=== PATIENT | male | born 1955 | race African-American/Black ===

== ENCOUNTER 2016-03-29 23:11 | Emergency (ER) | payer BC ==
--- NOTE | 2016-03-30 01:56 | ED ---
Substance Abuse/Use - HPI Summary HPI Summary: Patient was downtown drinking to get drunk. Jose called EMS due to heavy public intoxication. Patient denies any focal complaints, trauma. NO allev factors. - History Of Current Complaint Chief Complaint: EDOverdose Stated Complaint: ETOH Time Seen by Provider: 03/29/16 23:22 Hx Obtained From: Patient, EMS Onset/Duration of Drug/ETOH Abuse: Hours Overdose Characteristics: Oral Timing Of Abuse: Intermittent Severity Initially: Moderate Severity Currently: Moderate Aggravating Factor(s): Nothing Alleviating Factor(s): Nothing - Allergies/Home Medications Allergies/Adverse Reactions: Allergies Allergy/AdvReac Type Severity Reaction Status Date / Time No Known Allergies Allergy Verified 05/20/15 14:11 PMH/Surg Hx/FS Hx/Imm Hx Endocrine/Hematology History: Reports: Hx Diabetes Denies: Hx Thyroid Disease Cardiovascular History: Reports: Hx Hypertension Respiratory History: Denies: Hx Asthma, Other Respiratory Problems/Disorders Musculoskeletal History: Denies: Hx Arthritis, Other Musculoskeletal History Sensory History: Denies: Hx Contacts or Glasses, Hx Eye Injury, Hx Glaucoma, Hx Hearing Problem Opthamlomology History: Denies: Hx Contacts or Glasses, Hx Eye Injury, Hx Glaucoma Neurological History: Denies: Other Neuro Impairments/Disorders Psychiatric History: Denies: Hx Anxiety, Hx Depression Infectious Disease History: No Infectious Disease History: Denies: Traveled Outside the [place] in Last 30 Days - Family History Known Family History: Positive: None - Social History Alcohol Use: Occasionally Hx Substance Use: No Substance Use Type: Reports: None Smoking Status (MU): Former Smoker Have You Smoked in the Last Year: No Review of Systems Negative: Fever, Chills Cardiovascular: Negative Negative: Chest Pain Respiratory: Negative Negative: Shortness Of Breath Gastrointestinal: Negative Negative: Abdominal Pain All Other Systems Reviewed And Are Negative: Yes Physical Exam Triage Information Reviewed: Yes Vital Signs On Initial Exam: Initial Vitals Temp Pulse Resp BP Pulse Ox 97.1 F 82 16 156/93 98 03/29/16 23:13 03/29/16 23:13 03/29/16 23:13 03/29/16 23:13 03/29/16 23:13 Vital Signs Reviewed: Yes Appearance: Positive: Well-Appearing, No Pain Distress, Well-Nourished Skin: Positive: Warm, Skin Color Reflects Adequate Perfusion, Dry Eyes: Positive: Normal, EOMI, JESSICA ENT: Positive: Normal ENT inspection, Hearing grossly normal Respiratory/Lung Sounds: Positive: Clear to Auscultation, Breath Sounds Present Cardiovascular: Positive: Normal, RRR, Pulses are Symmetrical in both Upper and Lower Extremities Abdomen Description: Positive: Nontender, No Organomegaly, Soft Musculoskeletal: Positive: Normal, Strength/ROM Intact Neurological: Positive: Normal, Sensory/Motor Intact, Alert, Oriented to Person Place, Time, CN Intact II-III, Reflexes Intact, Normal Gait. Negative: Cerebellar Dysfunction Diagnostics - Vital Signs Vital Signs Temp Pulse Resp BP Pulse Ox 03/29/16 23:13 97.1 F 82 16 156/93 98 - Laboratory Lab Statement: Any lab studies that have been ordered have been reviewed, and results considered in the medical decision making process. Course/Dx - Diagnoses Differential Diagnosis/HQI/PQRI: Positive: Alcohol Abuse, Other - Primary concern for acute alcohol intoxication. NO external signs of trauma. Will allow to metabolize and reassess need for medical evaluation. If improves and clinically krysta, then DC. He does not currently have a safe environment to discharge home right now and will be observed in the ED for his safety. Provider Diagnoses: Alcohol intoxication Discharge - Discharge Plan Condition: Improved Disposition: HOME Patient Education Materials: Alcohol Intoxication (ED) Referrals: Raad Hoyt MD [Primary Care Provider] -
[2016-03-30 05:42] VITALS: BP 154/76
== END 2016-03-30 05:41 | disposition home or self-care (01) ==
LOC: ED 23:11
DX: F10.129 Alcohol abuse with intoxication, unspecified (principal); Z87.891 Personal history of nicotine dependence
CPT/HCPCS: 99282

== ENCOUNTER 2016-04-15 11:26 | Emergency (ER) | payer BC ==
[2016-04-15 12:05] VITALS: BP 153/96
--- NOTE | 2016-04-15 12:28 | UC ---
Eye Complaint HPI - HPI Summary HPI Summary: 2-3 days ago pt developed bilat eye itching and redness with drainage. Tried using ketotifen drops last night, today redness and itching are much worse. - History of Current Complaint Chief Complaint: UCEye Stated Complaint: EYE ISSUE Time Seen by Provider: 04/15/16 12:10 Hx Obtained From: Patient Onset/Duration: Gradual Onset, Lasting Days Timing: Constant Severity Initially: Mild Severity Currently: Moderate Location of Injury: Conjunctiva Aggravating Factor(s): Eye Drops Alleviating Factor(s): Nothing Associated Signs And Symptoms: Positive: Drainage (Clear) - Allergies/Home Medications Allergies/Adverse Reactions: Allergies Allergy/AdvReac Type Severity Reaction Status Date / Time No Known Allergies Allergy Verified 05/20/15 14:11 Home Medications: Home Medications metFORMIN* [Glucophage*] 1,000 mg PO 0800,1700 04/15/16 [History Confirmed 04/15] PMH/Surg Hx/FS Hx/Imm Hx Endocrine History Of: Reports: Diabetes Denies: Thyroid Disease Cardiovascular History Of: Reports: Hypertension Respiratory History Of: Denies: Asthma Psychological History Of: Denies: Anxiety, Depression - Surgical History Surgical History: None - Family History Known Family History: Positive: Hypertension - Social History Occupation: Employed Full-time Lives: Alone Alcohol Use: Weekly Substance Use Type: None Smoking Status (MU): Former Smoker Have You Smoked in the Last Year: No Review of Systems Constitutional: Negative Skin: Negative Eyes: Drainage, Eye Redness ENT: Negative Respiratory: Negative Cardiovascular: Negative Gastrointestinal: Negative Genitourinary: Negative Motor: Negative Neurovascular: Negative Musculoskeletal: Negative Neurological: Negative Psychological: Negative All Other Systems Reviewed And Are Negative: Yes Physical Exam Triage Information Reviewed: Yes Appearance: Well-Appearing, No Pain Distress, Well-Nourished Vital Signs: Initial Vital Signs Temp 97.7 F 04/15/16 12:01 Pulse 78 04/15/16 12:01 Resp 18 04/15/16 12:01 BP 153/96 04/15/16 12:01 Pulse Ox 98 04/15/16 12:01 Vital Signs Reviewed: Yes Eye Exam: Other - copious clear and purulent drainage Eyes: Positive: Conjunctiva Inflamed ENT: Positive: Normal ENT inspection, Hearing grossly normal, Pharynx normal, Nasal drainage Dental Exam: Normal Neck exam: Normal Neck: Positive: Supple, Nontender, No Lymphadenopathy Respiratory Exam: Normal Respiratory: Positive: Chest non-tender, Lungs clear, Normal breath sounds, No respiratory distress, No accessory muscle use Cardiovascular Exam: Normal Cardiovascular: Positive: RRR, No Murmur Musculoskeletal Exam: Normal Neurological Exam: Normal Psychological Exam: Normal Skin Exam: Normal Eye Complaint Course/Dx - Differential Dx/Diagnosis Provider Diagnoses: bilat conjunctivitis, likely bacterial Discharge - Discharge Plan Condition: Stable Disposition: HOME Prescriptions: Ciprofloxacin 0.3% OPTH.DENIS* [Cipro 0.3% Opth*] 2 drop BOTH EYES QID #10 ml Patient Education Materials: Conjunctivitis (ED) Forms: *Work Release Referrals: Raad Hoyt MD [Primary Care Provider] - 3 Days Additional Instructions: As we discussed, I suspect that you have a bacterial infection. The over-the- counter drops you used may have caused an allergic reaction in your eyes, making them much more itchy and red than before. If your infection is caused by bacteria, the drops I prescribed should give you some improvement within a couple days. If you are not improving by , please see Dr. Hoyt. Viral conjunctivitis (which is common in adults and is very possible in your case) has no treatment but will typically resolve on its own in 1-2 weeks. Allergic conjunctivitis needs different treatment and can include pills, nasal sprays, and eye drops that all help block the body's allergic response.
== END 2016-04-15 12:56 | disposition home or self-care (01) ==
LOC: UCEAST 11:26
DX: H10.9 Unspecified conjunctivitis (principal); Z87.891 Personal history of nicotine dependence; E11.9 Type 2 diabetes mellitus without complications; I10 Essential (primary) hypertension
CPT/HCPCS: 99212; G0463

== ENCOUNTER 2016-07-20 12:55 | Emergency (ER) | payer BC ==
[2016-07-20] MEDS ORDERED: amLODIPine TAB* 5 MG PO ONE ×2 (15:04→17:46)
--- NOTE | 2016-07-20 15:25 | RAD ---
Indication: Hypertension, confusion. 2 views of the chest including dual energy PA views demonstrate no mediastinal shift. Heart is of normal size and configuration. Lung horne are clear. IMPRESSION: No active cardiopulmonary disease is noted.
[2016-07-20 16:10] LABS: Hematocrit 47 % (42-52); Hemoglobin 15.6 g/dl (14.0-18.0); Mean Corpuscular HGB Conc 33 g/dl (31-36); Mean Corpuscular Hemoglobin 29 pg (27-31); Mean Corpuscular Volume 87 fL (80-94); Mean Platelet Volume 9 um3 (7.4-10.4); Red Blood Count 5.45 10^6/ul (4.0-5.4); Red Cell Distribution Width 15 % (10.5-15); White Blood Count 8.3 10^3/ul (3.5-10.8)
[2016-07-20 16:24] LABS: Albumin 4.2 g/dL (3.2-5.2); BUN/Creatinine Ratio 9.8 (8-20); Calcium 9.8 mg/dL (8.6-10.3); EGFR African American 107.2 (>60); EGFR Non-African American 83.4 (>60); Globulin 3.4 g/dL (2-4); Total Bilirubin 0.6 mg/dL (0.2-1.0); Total Protein 7.6 g/dL (6.4-8.9)
[2016-07-20 16:30] LABS: Potassium 4.1 mmol/L (3.5-5.0)
[2016-07-20] MEDS ORDERED: NS 0.9% 1000 ML* 1,000 ML IV ONE (16:47)
[2016-07-20] MEDS ORDERED: hydrALAZINE IV* 20 MG/ML VIAL IV SLOW PU ONE (17:45)
--- NOTE | 2016-07-20 18:16 | RAD ---
Indication: Hypertensive headaches. CT of the brain was performed without IV contrast. Coronal and sagittal reconstructed images were obtained. Ventricular structures are midline. No midline shift is noted. The extra-axial spaces are unremarkable. There is no evidence of intracranial mass or hemorrhage. No other high or low density lesions are identified. Mastoid air cells and paranasal sinuses are unremarkable. IMPRESSION: There is no evidence of intracranial mass or hemorrhage noted.
[2016-07-20 18:22] LABS: Urine Bacteria Absent (Absent); Urine Bilirubin Negative (Negative); Urine Glucose Negative (Negative); Urine Nitrite Negative (Negative)
[2016-07-20] MEDS ORDERED: amLODIPine TAB* 5 MG ONE (18:26)
--- NOTE | 2016-07-20 20:02 | ED ---
Sari Romero Alok, scribed for Asia Pandey MD on 07/20/16 at 1441 . Hypertension - HPI Summary HPI Summary: 61M presents to the ED for HTN for the past 4 days. Pt has had HTN for years and takes Valsartan 320mg QD which has been effectively managing his BP up until 4 days ago. Pt states his BP has been consistently high throughout the day , running at 199/95. His baseline BP has been 131/-. Pt notes a mild WAL[place]. Pt denies CP or SOB. Pt drinks ETOH. - History of Current Complaint Chief Complaint: EDGeneral Stated Complaint: HIGH BP,DIZZY,HEAD ACHE Time Seen by Provider: 07/20/16 13:40 Hx Obtained From: Patient Onset/Duration: Started Days Ago, Atraumatic, Still Present Timing: Constant Reported Blood Pressure Prior To Arrival: 199/95 Aggravating Factor(s): Nothing Alleviating Factor(s): Nothing Associated Signs & Symptoms: Headaches - Allergies/Home Medications Allergies/Adverse Reactions: Allergies Allergy/AdvReac Type Severity Reaction Status Date / Time No Known Allergies Allergy Verified 05/20/15 14:11 PMH/Surg Hx/FS Hx/Imm Hx Endocrine/Hematology History: Reports: Hx Diabetes Denies: Hx Thyroid Disease Cardiovascular History: Reports: Hx Hypertension Respiratory History: Denies: Hx Asthma, Other Respiratory Problems/Disorders Musculoskeletal History: Denies: Hx Arthritis, Other Musculoskeletal History Sensory History: Denies: Hx Contacts or Glasses, Hx Eye Injury, Hx Glaucoma, Hx Hearing Problem Opthamlomology History: Denies: Hx Contacts or Glasses, Hx Eye Injury, Hx Glaucoma Neurological History: Denies: Other Neuro Impairments/Disorders Psychiatric History: Denies: Hx Anxiety, Hx Depression Infectious Disease History: No Infectious Disease History: Denies: Traveled Outside the [place] in Last 30 Days - Family History Known Family History: Positive: Hypertension - Social History Occupation: Employed Full-time Lives: Alone Alcohol Use: Weekly Hx Substance Use: No Substance Use Type: Reports: None Smoking Status (MU): Former Smoker Have You Smoked in the Last Year: No Review of Systems Negative: Fever Positive: Other - HTN. Negative: Chest Pain Negative: Shortness Of Breath Positive: Headache All Other Systems Reviewed And Are Negative: Yes Physical Exam Triage Information Reviewed: Yes Vital Signs On Initial Exam: Initial Vitals Temp Pulse Resp BP Pulse Ox 97.7 F 64 20 199/95 99 07/20/16 13:08 07/20/16 13:08 07/20/16 13:08 07/20/16 13:08 07/20/16 13:08 Vital Signs Reviewed: Yes Appearance: Positive: Well-Appearing, No Pain Distress Skin: Positive: Warm, Skin Color Reflects Adequate Perfusion, Dry Eyes: Positive: EOMI, JESSICA ENT: Positive: Pharynx normal, TMs normal Neck: Positive: Supple, Nontender Respiratory/Lung Sounds: Positive: Clear to Auscultation, Breath Sounds Present. Negative: Rales, Rhonchi, Wheezes Cardiovascular: Positive: RRR, Other - No gallop. Negative: Murmur, Rub Abdomen Description: Positive: Nontender, Soft, Other: - No rebound. Negative: Distended, Guarding Bowel Sounds: Positive: Present Musculoskeletal: Positive: Strength/ROM Intact. Negative: Edema Left, Edema Right Neurological: Positive: Sensory/Motor Intact, Alert, Oriented to Person Place, Time, CN Intact II-III Psychiatric: Positive: Affect/Mood Appropriate - [place] Coma Scale Coma Scale Total: 15 Diagnostics - Vital Signs Vital Signs Temp Pulse Resp BP Pulse Ox 07/20/16 13:11 98.1 F 77 20 199/95 98 07/20/16 13:08 97.7 F 64 20 199/95 99 - Laboratory Lab Results: Lab Results 07/20/16 07/20/16 07/20/16 Range/Units 16:00 16:00 16:00 WBC 8.3 (3.5-10.8) 10^3/ul RBC 5.45 H (4.0-5.4) 10^6/ul Hgb 15.6 (14.0-18.0) g/dl Hct 47 (42-52) % MCV 87 (80-94) fL MCH 29 (27-31) pg MCHC 33 (31-36) g/dl RDW 15 (10.5-15) % Plt Count 223 (150-450) 10^3/ul MPV 9 (7.4-10.4) um3 Neut % (Auto) 69.9 (38-83) % Lymph % (Auto) 18.1 L (25-47) % [place] % (Auto) 9.9 H (1-9) % Eos % (Auto) 1.6 (0-6) % Baso % (Auto) 0.5 (0-2) % Absolute Neuts (auto) 5.8 (1.5-7.7) 10^3/ul Absolute Lymphs (auto) 1.5 (1.0-4.8) 10^3/ul Absolute Monos (auto) 0.8 (0-0.8) 10^3/ul Absolute Eos (auto) 0.1 (0-0.6) 10^3/ul Absolute Basos (auto) 0 (0-0.2) 10^3/ul Absolute Nucleated RBC 0.01 10^3/ul Nucleated RBC % 0.2 Sodium 139 (133-145) mmol/L Potassium 4.1 (3.5-5.0) mmol/L Chloride 106 (101-111) mmol/L Carbon Dioxide 25 (22-32) mmol/L Anion Gap 8 (2-11) mmol/L BUN 9 (6-24) mg/dL Creatinine 0.92 (0.67-1.17) mg/dL Est GFR ( Amer) 107.2 (>60) Est GFR (Non-Af Amer) 83.4 (>60) BUN/Creatinine Ratio 9.8 (8-20) Glucose 97 (70-100) mg/dL Lactic Acid 2.3 H* (0.5-2.0) mmol/L Calcium 9.8 (8.6-10.3) mg/dL Total Bilirubin 0.60 (0.2-1.0) mg/dL AST 22 (13-39) U/L ALT 30 (7-52) U/L Alkaline Phosphatase 93 (34-104) U/L Total Protein 7.6 (6.4-8.9) g/dL Albumin 4.2 (3.2-5.2) g/dL Globulin 3.4 (2-4) g/dL Albumin/Globulin Ratio 1.2 (1-3) Urine Color Urine Appearance Urine pH (5-9) Ur Specific [place] (1.010-1.030) Urine Protein (Negative) Urine Ketones (Negative) Urine Blood (Negative) Urine Nitrate (Negative) Urine Bilirubin (Negative) Urine Urobilinogen (Negative) Ur Leukocyte Esterase (Negative) Urine WBC (Auto) (Absent) Urine RBC (Auto) (Absent) Ur Squamous Epith Cells (Absent) Urine Bacteria (Absent) Urine Glucose (Negative) 07/20/16 07/20/16 Range/Units 18:10 19:34 WBC (3.5-10.8) 10^3/ul RBC (4.0-5.4) 10^6/ul Hgb (14.0-18.0) g/dl Hct (42-52) % MCV (80-94) fL MCH (27-31) pg MCHC (31-36) g/dl RDW (10.5-15) % Plt Count (150-450) 10^3/ul MPV (7.4-10.4) um3 Neut % (Auto) (38-83) % Lymph % (Auto) (25-47) % [place] % (Auto) (1-9) % Eos % (Auto) (0-6) % Baso % (Auto) (0-2) % Absolute Neuts (auto) (1.5-7.7) 10^3/ul Absolute Lymphs (auto) (1.0-4.8) 10^3/ul Absolute Monos (auto) (0-0.8) 10^3/ul Absolute Eos (auto) (0-0.6) 10^3/ul Absolute Basos (auto) (0-0.2) 10^3/ul Absolute Nucleated RBC 10^3/ul Nucleated RBC % Sodium (133-145) mmol/L Potassium (3.5-5.0) mmol/L Chloride (101-111) mmol/L Carbon Dioxide (22-32) mmol/L Anion Gap (2-11) mmol/L BUN (6-24) mg/dL Creatinine (0.67-1.17) mg/dL Est GFR ( Amer) (>60) Est GFR (Non-Af Amer) (>60) BUN/Creatinine Ratio (8-20) Glucose (70-100) mg/dL Lactic Acid 1.9 (0.5-2.0) mmol/L Calcium (8.6-10.3) mg/dL Total Bilirubin (0.2-1.0) mg/dL AST (13-39) U/L ALT (7-52) U/L Alkaline Phosphatase (34-104) U/L Total Protein (6.4-8.9) g/dL Albumin (3.2-5.2) g/dL Globulin (2-4) g/dL Albumin/Globulin Ratio (1-3) Urine Color Yellow Urine Appearance Clear Urine pH 5.0 (5-9) Ur Specific [place] 1.018 (1.010-1.030) Urine Protein 1+(30 mg/dl) H (Negative) Urine Ketones Negative (Negative) Urine Blood Negative (Negative) Urine Nitrate Negative (Negative) Urine Bilirubin Negative (Negative) Urine Urobilinogen Negative (Negative) Ur Leukocyte Esterase Negative (Negative) Urine WBC (Auto) Trace(0-5/hpf) (Absent) Urine RBC (Auto) 1+(3-5/hpf) H (Absent) Ur Squamous Epith Cells Present H (Absent) Urine Bacteria Absent (Absent) Urine Glucose Negative (Negative) Result Diagrams: 07/20/16 16:00 07/20/16 16:00 Lab Statement: Any lab studies that have been ordered have been reviewed, and results considered in the medical decision making process. - Radiology CXR Xray Interpretation: Positive (See Comments) - IMPRESSION: NO ACTIVE CARDIOPULMONARY DISEASE IS NOTED. Radiology Interpretation Completed By: Radiologist - CT Brain CT CT Interpretation: Positive (See Comments) - IMPRESSION: There is no evidence of intracranial mass or hemorrhage noted. CT Interpretation Completed By: Radiologist - EKG 1319 Cardiac Rate: NL - 58 bpm EKG Rhythm: Sinus Rhythm Hypertension Course/Dx - Course Assessment/Plan: 61 yo male with htn with bp's at 190/100 since . Case was discussed with Dr. Jimenez and Dr. Hernández initially 5mg of amlodipine was added to his 320 mg of valsaartan without much change and second dose of 5mg and 10mg of hydralazine were given with spb of 180. Pt is essentially asymptomatic, did have a mild walden, ct neg, labs normal a little protein in urine. He did have an initial lactae that was 2.3 that was redrawn and was below 2. Pt understands it is going to take some time to get his pressures down and that if he has cp, sob, or worsened headache he needs to come back - Diagnoses Provider Diagnoses: Hypertensive urgency Discharge - Discharge Plan Condition: Stable Disposition: HOME Prescriptions: Amlodipine Besylate [Norvasc 5 mg tab] 5 mg PO DAILY #14 tab The documentation as recorded by the Sari prater Alok accurately reflects the service I personally performed and the decisions made by me, Asia Pandey MD.
[2016-07-20 20:41] VITALS: BP 186/89
== END 2016-07-20 20:43 | disposition home or self-care (01) ==
LOC: ED 12:55
DX: I16.0 Hypertensive urgency (principal); R51 Headache; Z87.891 Personal history of nicotine dependence
CPT/HCPCS: 36415; 70450; 71020; 80053; 81003; 81015; 83605; 85025; 93005; 99284; A9270-GY; J0360

== ENCOUNTER 2017-02-21 02:26 | Emergency (ER) | payer BC ==
[2017-02-21] MEDS ORDERED: Thiamine IV 100 MG, Folic Acid IV* 1 MG, Multiple Vitamin IV ADULT* 10 ML in NS 0.9% 10... IV ONE (02:47)
[2017-02-21 03:21] LABS: ABS Basophils 0 10^3/ul (0-0.2); ABS Eosinophils 0.1 10^3/ul (0-0.6); ABS Lymphocytes 2.2 10^3/ul (1.0-4.8); ABS Monocytes 0.6 10^3/ul (0-0.8); ABS Neutrophils 4.3 10^3/ul (1.5-7.7); ABS Nucleated RBC 0 10^3/ul; Eosinophil % 0.9 % (0-6); Hematocrit 45 % (42-52); Hemoglobin 14.9 g/dl (14.0-18.0); Lymphocyte % 30.8 % (25-47); Mean Corpuscular HGB Conc 33 g/dl (31-36); Mean Corpuscular Hemoglobin 29 pg (27-31); Mean Corpuscular Volume 87 fL (80-94); Mean Platelet Volume 9 um3 (7.4-10.4); Nucleated Red Blood Cells % 0.2; Platelet Count 295 10^3/ul (150-450); Red Blood Count 5.11 10^6/ul (4.0-5.4); Red Cell Distribution Width 15 % (10.5-15); White Blood Count 7.2 10^3/ul (3.5-10.8)
[2017-02-21 03:29] LABS: EGFR Non-African American 86.3 (>60)
[2017-02-21 04:25] LABS: Urine Appearance Clear; Urine Blood 1+ (Negative); Urine Color Yellow; Urine Ketones Negative (Negative); Urine Protein 1+(30 mg/dL) (Negative); Urine Specific Gravity 1.005 (1.010-1.030); Urine Urobilinogen Negative (Negative)
--- NOTE | 2017-02-21 06:48 | ED ---
Tamara Romero Abhishek, scribed for Gianfranco De La Torre MD on 02/21/17 at 0255 . Substance Abuse/Use - HPI Summary HPI Summary: LEVEL 5 CAVEAT - EtOH intoxication This patient is a 62 year old M BIBA with a chief complaint of EtOH intoxication since few minutes ago. The pt is unable to give adequate hx due to EtOH intoxication and hx is given by EMS. According to the EMS report the pt was bar hopping and was found on the ground by a bystander (a woman). [facility]. Pt states that he drinks alcohol everyday and was drinking alcohol all day today. - History Of Current Complaint Stated Complaint: LEG PAIN Time Seen by Provider: 02/21/17 02:27 Hx Obtained From: EMS Hx From Patient Unobtainable Due To: Altered Mental Status Onset/Duration of Drug/ETOH Abuse: Days - whole day Aggravating Factor(s): Nothing Alleviating Factor(s): Nothing Associated Signs And Symptoms: Altered Mental Status - Allergies/Home Medications Allergies/Adverse Reactions: Allergies Allergy/AdvReac Type Severity Reaction Status Date / Time No Known Allergies Allergy Verified 12/25/16 15:22 PMH/Surg Hx/FS Hx/Imm Hx Endocrine/Hematology History: Reports: Hx Diabetes Denies: Hx Thyroid Disease Cardiovascular History: Reports: Hx Hypertension Denies: Hx Pacemaker/ICD Respiratory History: Denies: Hx Asthma, Other Respiratory Problems/Disorders History: Denies: Hx Renal Disease Musculoskeletal History: Denies: Hx Arthritis, Other Musculoskeletal History Sensory History: Denies: Hx Contacts or Glasses, Hx Eye Injury, Hx Glaucoma, Hx Hearing Aid, Hx Hearing Problem Opthamlomology History: Denies: Hx Contacts or Glasses, Hx Eye Injury, Hx Glaucoma Neurological History: Denies: Other Neuro Impairments/Disorders Psychiatric History: Denies: Hx Anxiety, Hx Depression, Hx Panic Disorder - Surgical History Surgery Procedure, Year, and Place: PT STATES NEVER Infectious Disease History: No Infectious Disease History: Denies: Traveled Outside the [place] in Last 30 Days - Family History Known Family History: Positive: Hypertension Family History: Unable to obtain due to altered mental state from EtOH intoxication - Social History Alcohol Use: Weekly Hx Substance Use: No Substance Use Type: Reports: None Smoking Status (MU): Former Smoker Have You Smoked in the Last Year: No Review of Systems - ROS Summary Review of Systems Summary: Unable to obtain due to altered mental state from EtOH intoxication. Constitutional: Negative Eyes: Negative ENT: Negative Cardiovascular: Negative Respiratory: Negative Gastrointestinal: Negative Genitourinary: Negative Musculoskeletal: Negative Skin: Negative Positive: Syncope - Pt was found on the ground by bystander Psychological: Other - altered mental state - EtOH intoxication All Other Systems Reviewed And Are Negative: Yes Physical Exam - Summary Physical Exam Summary: LEVEL 5 CAVEAT - EtOH Intoxication. Unable to complete full exam. VITAL SIGNS: Reviewed. GENERAL: Impulsive Alcoholic breath HEAD AND FACE: No signs of trauma. No ecchymosis, hematomas or skull depressions. No sinus tenderness. EYES: PERRLA, EOMI x 2, No injected conjunctiva, no nystagmus. EARS: Hearing grossly intact. Ear canals and tympanic membranes are within normal limits. MOUTH: Oropharynx within normal limits. NECK: Supple, trachea is midline, no adenopathy, no JVD, no carotid bruit, no c- spine tenderness, neck with full ROM. CHEST: Symmetric, no tenderness at palpation LUNGS: Clear to auscultation bilaterally. No wheezing or crackles. CVS: Regular rate and rhythm, S1 and S2 present, no murmurs or gallops appreciated. ABDOMEN: Soft, non-tender. No signs of distention. No rebound no guarding, and no masses palpated. Bowel sounds are normal. EXTREMITIES: FROM in all major joints, no edema, no cyanosis or clubbing. NEURO: No acute neurological deficits. SKIN: Dry and warm Triage Information Reviewed: Yes Vital Signs On Initial Exam: Initial Vitals Temp Pulse Resp BP Pulse Ox 97.1 F 75 18 157/99 98 02/21/17 02:41 02/21/17 02:41 02/21/17 02:41 02/21/17 02:41 02/21/17 02:41 Vital Signs Reviewed: Yes Diagnostics - Vital Signs Vital Signs Temp Pulse Resp BP Pulse Ox 02/21/17 02:41 97.1 F 75 18 157/99 98 - Laboratory Result Diagrams: 02/21/17 02:54 02/21/17 02:54 Lab Statement: Any lab studies that have been ordered have been reviewed, and results considered in the medical decision making process. - CT CT Head CT Interpretation Completed By: Radiologist - CT head reveals, per radiologist, no acute intracranial process. ED physician has reviewed this radiology report and agrees. Course/Dx - Course Course Of Treatment: The pt arrived to the [facility] via ambulance and we were unable to reciveve hx from the pt. Hx given by the EMS report. Pt was drinking alcohol prior to [facility] arrival and was found on the ground by a bystander as per EMS report. The pt will be signed out to Dr. Arguello pending disposition with a dx of EtOH intoxication. - Diagnoses Provider Diagnoses: Alcohol intoxication Discharge - Discharge Plan Condition: Stable Disposition: OTHER Discharge Disposition Comment: Pt will be signed out to ____, pending disposition. Referrals: Raad Hoyt MD [Primary Care Provider] - The documentation as recorded by the Tamara prater Abhishek accurately reflects the service I personally performed and the decisions made by me, Gianfranco De La Torre MD.
--- NOTE | 2017-02-21 07:53 | RAD ---
INDICATION: Head injury. COMPARISON: Comparison is made with a prior CT of the brain from July 20, 2016. TECHNIQUE: Contiguous axial sections of the brain were obtained from the skull base to the vertex without contrast. FINDINGS: The ventricles, cisterns and sulci are enlarged consistent with age-related atrophy. There are small areas of decreased density in the subcortical and periventricular white matter suggestive of mild to moderate chronic small vessel ischemic changes. There appear to be small old bilateral infarcts present in the anterior limb of the left internal capsule and within the right lentiform nucleus. There is no evidence for hemorrhage. No significant focal osseous abnormality is seen. The visualized portion of the paranasal sinuses and mastoid air cells appear clear. IMPRESSION: 1. NO EVIDENCE FOR ACUTE INTRACRANIAL ABNORMALITY. 2. 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
--- NOTE | 2017-02-21 09:11 | ED ---
Louis Romero Natalie, scribed for Christoph Arguello MD on 02/21/17 at 0908 . Progress - Progress Note Progress Note: pt feels better, no acute distress, no evidence of intoxication. ambulating normally, instructed to fu with PMD and return for any worsening symptoms. Pt agrees to and understnads dc instructions. Course/Dx - Course Course Of Treatment: The pt arrived to the [facility] via ambulance and we were unable to reciveve hx from the pt. Hx given by the EMS report. Pt was drinking alcohol prior to [facility] arrival and was found on the ground by a bystander as per EMS report. The pt will be signed out to Dr. Arguello pending disposition with a dx of EtOH intoxication. - Diagnoses Provider Diagnoses: Alcohol intoxication The documentation as recorded by the Louis prater Natalie accurately reflects the service I personally performed and the decisions made by Jos sanders Dong, MD.
[2017-02-21 10:21] VITALS: BP 163/92
== END 2017-02-21 10:19 | disposition home or self-care (01) ==
LOC: ED 02:26
DX: F10.129 Alcohol abuse with intoxication, unspecified (principal); Z87.891 Personal history of nicotine dependence; R55 Syncope and collapse; R41.82 Altered mental status, unspecified
CPT/HCPCS: 36415; 70450; 80053; 80307; 80320; 80329; 81003; 81015; 83735; 84443; 85025; 96365; 96366; 96367; 99284; G0480; J3411